=== PATIENT | female | born 1975 | race Hispanic/Latino ===

== ENCOUNTER 2016-10-18 07:53 | Emergency (ER) | payer OTHER ==
--- NOTE | 2016-10-18 08:15 | ERPHSYRPT ---
- History of Present Illness Time Seen by Provider: 10/18/16 08:10 Source: patient Exam Limitations: clinical condition Patient Subjective Stated Complaint: PT REPORTS HAVING SINUS SURGERY 8 DAYS AGO- STATES SHE WOKE THIS AM TO BILATERAL LEGS BURNING ET SWOLLEN-DENIES INJURY- DENIES FEVER Triage Nursing Assessment: PT PINK WARM ET DRY-A & O X 3-NO OBVIOUS INJURY-NO REDNESS OR SWELLING NOTED-PEDAL PULSES REGUALR ET STRONG Physician History: PATIENT STATES SHE AWAKENED FROM SLEEP WITH PAIN IN BOTH LOWER EXTREMITIEST,HAS BEEN TREATED WITH PREDNISONE OVER THE 3 WEEKS AND HAD RECENT SINUS SURGERY 8 DAYS AGO. pATIENT STATES PAIN IS WORSE WITH WEIGHT BEARING AND SHE DENIES BRUISING, TRAUMA, OR INJURY. Method of Injury: unknown Occurred: just prior to arrival Quality: constant Severity of Pain-Max: moderate Severity of Pain-Current: moderate Lower Extremities Pain: leg: bilateral, knee: bilateral, thigh: bilateral Modifying Factors: Improves With: movement Associated Symptoms: other (PAIN UPON WEIGHT-BEARING) Allergies/Adverse Reactions: No Known Drug Allergies Allergy (Verified 10/18/16 08:02) Home Medications: Hydrocodone/APAP 10/325 mg [Myrtle 10/325 MG Tablet] 1 tab PO BID 10/13/16 [History] Ibuprofen 200 mg [Motrin 200 mg] 0 mg PO .UNKNOWN 10/13/16 [History] Prednisone 10 mg [Deltasone 10 mg] 10 mg PO BID 10/13/16 [History] Hx Tetanus, Diphtheria Vaccination/Date Given: Yes Hx Influenza Vaccination/Date Given: Yes Hx Pneumococcal Vaccination/Date Given: Yes Immunizations Up to Date: Yes - Review of Systems Constitutional: No Fever, No Chills Eyes: No Symptoms Ears, Nose, & Throat: No Symptoms Respiratory: No Cough, No Dyspnea Cardiac: No Chest Pain, No Edema, No Syncope Abdominal/Gastrointestinal: No Symptoms, No Abdominal Pain, No Nausea, No Vomiting, No Diarrhea Genitourinary Symptoms: No Symptoms, No Dysuria Musculoskeletal: Myalgias, Other (PAIN WITH SWELLING IN LEGS), No Back Pain, No Neck Pain Skin: No Rash Neurological: No Dizziness, No Focal Weakness, No Sensory Changes Psychological: No Symptoms Endocrine: No Symptoms All Other Systems: Reviewed and Negative - Past Medical History Pertinent Past Medical History: No - Past Surgical History Past Surgical History: Yes Gastrointestinal: Cholecystectomy Female Surgical History: Tubal Ligation Other Surgical History: SINUS - Social History Smoking Status: Never smoker Exposure to second hand smoke: No Drug Use: none Patient Lives Alone: No - Female History Hx Last Menstrual Period: OCTOBER 02 2016 - Nursing Vital Signs Nursing Vital Signs: Initial Vital Signs Temperature 97.1 F Temperature Source Oral Pulse Rate 74 Respiratory Rate 18 Blood Pressure [Right Arm] 115/69 Pain Intensity 4 - Physical Exam General Appearance: alert Eyes, Ears, Nose, Throat Exam: moist mucous membranes Neck Exam: non-tender, supple Cardiovascular/Respiratory Exam: chest non-tender, normal breath sounds, regular rate/rhythm, no respiratory distress Gastrointestinal/Abdominal Exam: non-tender, guarding Back Exam: normal inspection, No vertebral tenderness Legs Exam: bilateral leg: soft tissue tenderness (BILATERAL CALF AND HERNANDEZ TENDERNESS, NEGATIVE HOMANNS SING), swelling (MINIMAL TRACE PITTING EDEMA) Knees Exam: bilateral knee: soft tissue tenderness (FROM WITH PAIN, PATELLA MIDLINE, NO JOINT LAXITY UPON VARUS/VALGUS STRESS) Foot Exam: bilateral foot: other (PEDIS PULES 2+) DTR - Lower Extremities Exam: knee (R): 2+, knee (L): 2+, ankle (R): 2+, ankle ( L): 2+ Neuro/Tendon Exam: normal sensation, normal motor functions Mental Status Exam: alert, oriented x 3, cooperative Skin Exam: normal color, warm, dry SpO2 Interpretation: normal SpO2: 98 Oxygen Delivery: Room Air - Radiology Ultrasound Exam Venous Lower Extremity Ultrasound: discussed w/radiologist (there is no evidence of DVT) Ordered Tests: Active Orders 24 hr Category Date Time Status VENOUS BILATERAL EXTREMITY [US] Stat Exams 10/18/16 08:13 Completed BMP Stat Lab 10/18/16 08:25 Completed CBC W DIFF Stat Lab 10/18/16 08:25 Completed MAGNESIUM Stat Lab 10/18/16 08:25 Completed Manual Differential NC Stat Lab 10/18/16 08:25 Completed Lab/Rad Data: Laboratory Result Diagrams 10/18/16 08:25 10/18/16 08:25 Laboratory Results 10/18/16 10/18/16 Range/Units 08:25 08:25 WBC 15.2 H (4.0-10.5) K/mm3 RBC 4.21 (4.1-5.4) M/mm3 Hgb 10.5 L (12.0-16.0) gm/dl Hct 33.8 L (35-47) % MCV 80.3 (78-100) fl MCH 24.9 L (26-32) pg MCHC 31.1 L (32-36) g/dl RDW 15.8 H (11.5-14.0) % Plt Count 346 (150-450) K/mm3 MPV 9.2 (6-9.5) fl Sodium 139 (136-145) mEq/L Potassium 4.4 (3.5-5.1) mEq/L Chloride 105 (98-107) mEq/L Carbon Dioxide 23.8 (21-32) mEq/L Anion Gap 14.8 (5-15) MEQ/L BUN 13 (9-20) mg/dL Creatinine 0.93 (0.55-1.30) mg/dl Estimated GFR > 60 ML/MIN Glucose 129 H (70-110) MG/DL Calcium 8.9 (8.5-10.1) mg/dL Magnesium 1.9 (1.8-2.4) mg/dL - Progress Progress: unchanged Progress Note: 10/18/16 09:36 serum magnesium, calcium and potassium are within normal limits Counseled pt/family regarding: lab results, diagnosis, need for follow-up, rad results - Departure Time of Disposition: 09:35 Departure Disposition: Home Clinical Impression: lower extremity myalgias Condition: Stable Critical Care Time: No Additional Instructions: Continue all current medications including Motrin and Myrtle as directed and consult your primary care provider for reevaluation and physical therapy.
[2016-10-18 08:38] LABS: Mean Cell Volume 80.3 fl (78-100); Mean Corpuscular Hemoglobin 24.9 pg (26-32); Mean Platelet Volume 9.2 fl (6-9.5); Platelet Count 346 K/mm3 (150-450); Red Blood Count 4.21 M/mm3 (4.1-5.4); Red Cell Distribution Width 15.8 % (11.5-14.0); White Blood Count 15.2 K/mm3 (4.0-10.5)
[2016-10-18 08:50] LABS: ANION GAP 14.8 MEQ/L (5-15); BLOOD UREA NITROGEN 13 mg/dL (9-20); CHLORIDE 105 mEq/L (98-107); Carbon Dioxide 23.8 mEq/L (21-32); Glucose 129 MG/DL (70-110); MAGNESIUM 1.9 mg/dL (1.8-2.4); Potassium 4.4 mEq/L (3.5-5.1); SODIUM 139 mEq/L (136-145)
--- NOTE | 2016-10-18 09:12 | XRAY ---
Exam: Bilateral lower extremity duplex Doppler venous ultrasound examination from 10/18/2016. Comparison: None. Indication: Bilateral leg pain. Findings: The examination of the deep venous system of both lower extremities was carried out in the usual manner with grayscale imaging, color flow imaging, and Doppler tracings. Normal color blood flow, Doppler signal with augmentation, and transducer compression is seen within office machines sales representative deep venous segments of the lower extremities bilaterally including the common femoral veins, superficial femoral veins, popliteal veins, and distal posterior tibial veins. In addition, normal color flow is seen within the greater saphenous vein within the proximal thighs and the profunda femoral veins bilaterally. Impression: 1. No Doppler or sonographic evidence of deep venous thrombosis is seen within either lower extremity.
[2016-10-18 09:29] VITALS: BP 115/69; PULSE 74
[2016-10-18 09:36] VITALS: O2SAT 98
[2016-10-18 09:48] LABS: Total Cells Counted 100
[2016-10-18 09:49] LABS: Platelet Estimate NORMAL (NORMAL); Toxic Granulation 1+
== END 2016-10-18 09:42 | disposition home or self-care (01) ==
LOC: ED 07:53
DX: M79.1 Myalgia (principal); M79.605 Pain in left leg; M79.604 Pain in right leg; M79.89 Other specified soft tissue disorders
CPT/HCPCS: 36415; 80048; 83735; 85025; 93970